=== PATIENT | male | born 1990 ===

== ENCOUNTER 2025-01-17 15:32 | Emergency (ER) | payer MEDICAID, SELFPAY ==
[2025-01-17 15:43] VITALS: BP 149/88; PULSE 86; RESP 18; TEMP 36.7; O2SAT 96; BMI 28.2
--- NOTE | 2025-01-17 15:49 | ECG_ITS ---
Test Reason : SYNCOPE Blood Pressure : */* mmHG Vent. Rate : 74 BPM Atrial Rate : 74 BPM P-R Int : 166 ms QRS Dur : 102 ms QT Int : 392 ms P-R-T Axes : 38 -2 5 degrees QTcB Int : 435 ms Normal sinus rhythm Normal ECG No previous ECGs available Referred By: Generic ED Physician Electronically Signed By: FRANSICO LINDA
[2025-01-17 16:14] LABS: MANUAL DIFF FLAG NO
[2025-01-17 16:23] LABS: Hematocrit 39.4 % (42.0-52.0); Hemoglobin 13.7 g/dl (14.0-18.0); Imm Gran Abs Auto 0.03 X10*3/uL (0.00-0.03); Imm Gran Pct Auto 0.4 % (0.0-0.4); Lymphocytes Absolute Auto 1.6 X10*3/uL (1.2-4.9); Mean Corpuscular HGB Conc 34.8 g/dl (31.0-36.0); Mean Corpuscular Hemoglobin 28.8 pg (27.0-33.0); Mean Corpuscular Volume 82.9 fL (80.0-98.0); NRBC Abs Auto 0.000 X10*3/uL (0.0-0.012); NRBC Pct Auto 0.0 /100WBC (0.0-0.2); Platelet Count 239 X10*3/uL (160-400); Red Blood Count 4.75 X10*6/uL (4.60-5.80); White Blood Count 8.3 X10*3/uL (4.8-10.8)
--- NOTE | 2025-01-17 16:25 | ED.DIZZY ---
HPI - Dizziness General Chief Complaint: Syncope Stated Complaint: feeling faint, htn Time Seen by Provider: 01/17/25 15:47 History of Present Illness ED Provider: Anuj Atr MD HPI Narrative: 34-year-old male no significant medical history has not seen a physician in no about 10 years. No drugs drinking alcohol, he reports an vague sensation of lightheadedness and near-syncope while at work he said he was in the air conditioning today even though it is a very hot summer day. 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 Denies chest pain no headache. He reports about a week ago he had abnormal irregular type palpitation the felt strong in the right side of his chest after drinking 2 energy drinks that was unusual for him. Today he had 2 distinct episodes of these mild lightheadedness without fall or syncope. No chest pain during the event no leg swelling. No recent trauma. After this he ate watermelon drank some water felt better. Related Data Allergies Allergy/AdvReac Type Severity Reaction Status Date / Time stu Allergy Itching Verified 01/17/25 15:47 peach Allergy Itching Verified 01/17/25 15:47 [facility] Social History Social History Advance Directives: No Advance Directives Information Provided: No Physical Exam Vital Signs: Vital Signs: Last Vital Signs Temp 97.4 F 01/17/25 17:21 Pulse 74 01/17/25 17:21 Resp 16 01/17/25 17:21 BP 143/63 H 01/17/25 17:21 Pulse Ox 96 01/17/25 17:21 O2 Del Method Room Air 01/17/25 17:21 BMI result Body Mass Index 28.2 EXAM: Gen: Alert, awake, well appearing, well hydrated. Head: Atraumatic Eyes: Anicteric, Normal conjunctiva. ENT: Moist mucosa, no pallor. ? Neck: Supple. Skin: ?No observable rash or bruising on exposed or examined skin Respiratory: Breathing comfortably, No distress.Clear to auscultation bilaterally, symmetric chest expansion, No wheeze, rales, ronchi. Cardiovascular: Regular rate and rhythm. No murmurs or rub. Well perfused periphery, warm extremities. No edema. ? Abdominal: No focal tenderness. Soft, no objective distension. No palpable masses or obvious organomegaly. ?No guarding, no rebound tenderness or other peritoneal findings. : No flank tenderness. Neuro: Alert. Gross movement of all extremities intact. ? Psych: Calm. Cooperative. MSK: No grossly visible deformity. Vital signs: See flowsheet Medical Decision Making Medical Decision Making MDM Narrative: Medical Decision Making: [age] male with near-syncope/lightheaded symptoms. Looks euvolemic. He normally does not eat until late in the afternoon which I told him it is probably not healthy and could be causing some of his symptoms that happened today. He has a normal reassuring electrolytes. CBC is normal. He has no signs of infection. Looks euvolemic in his comfortable here. No murmur or extra heart sounds. I think the patient can follow up outpatient may need Holter monitor. Counseling on frequent small meals regular hydration avoiding caffeine energy drinks Preliminary Favored Differential Diagnosis: Orthostasis, dehydration, transient hypoglycemia, transient dysrhythmia among additional considered etiologies Testing Interpreted Independently: ECG bradycardia rate 50s, no ischemic changes, normal intervals and axis. Radiology or Lab testing Results Reviewed: CBC, chemistry including thyroid and electrolytes normal Consults: Not Applicable Independent Historians/External Chart Reviews: Not Applicable Social Determinants of Health Impacting MDM/Planning: Not Applicable Lab Data 01/17/25 16:07 01/17/25 16:07 Labs: Lab Results 01/17/25 Range/Units 16:07 WBC 8.3 (4.8-10.8) X10*3/uL RBC 4.75 (4.60-5.80) X10*6/uL Hgb 13.7 L (14.0-18.0) g/dl Hct 39.4 L (42.0-52.0) % MCV 82.9 (80.0-98.0) fL MCH 28.8 (27.0-33.0) pg MCHC 34.8 (31.0-36.0) g/dl RDW 12.4 (11.0-16.0) % Plt Count 239 (160-400) X10*3/uL MPV 9.4 (9.4-12.4) fL Immature Gran % (Auto) 0.4 (0.0-0.4) % Neut % (Auto) 74.7 H (45-73) % Lymph % (Auto) 19.5 L (20-40) % [place] % (Auto) 4.8 (2-11) % Eos % (Auto) 0.4 (0-4) % Baso % (Auto) 0.2 (0-2) % Lymph # (Auto) 1.6 (1.2-4.9) X10*3/uL [place] # (Auto) 0.4 (0.1-1.2) X10*3/uL Eos # (Auto) 0.0 (0.0-0.4) X10*3/uL Baso # (Auto) 0.0 (0.0-0.2) X10*3/uL Abs Immat Gran (auto) 0.03 (0.00-0.03) X10*3/uL Absolute Neuts (auto) 6.2 (2.0-8.3) x10*3/uL Absolute Nucleated RBC 0.000 (0.0-0.012) X10*3/uL Nucleated RBC % (auto) 0.0 (0.0-0.2) /100WBC Sodium 139 (135-145) mmol/L Potassium 3.7 (3.3-5.1) mmol/L Chloride 106 (96-108) mmol/L Carbon Dioxide 26 (22-29) mmol/L Anion Gap 11 L (12-20) BUN 15 (9-16) mg/dL Creatinine 1.07 (0.5-1.4) mg/dL Estim Creat Clear Calc 107.0 Estimated GFR > 60 Random Glucose 126 H (60-115) mg/dL Calcium 9.0 (8.4-10.2) mg/dL Total Bilirubin 0.5 (0.0-1.0) mg/dL AST 28 (5-37) U/L ALT 36 (0-40) U/L Alkaline Phosphatase 49 (39-117) U/L Total Protein 6.9 (6.5-8.0) g/dL Albumin 4.5 (3.5-5.0) g/dL TSH 2.01 (0.32-4.0) uIU/mL Discharge Plan Discharge Clinical Impression: Dehydration Patient Disposition: Home, Self-Care Instructions: Heart Palpitations (DC), Dehydration (ED) Additional Instructions: DISCHARGE DIAGNOSES: Palpitations, lightheaded/near passing out sensation resolved. Unclear diagnosis. Reassuring EKG, examination and lab work. HISTORY OF PRESENTATION: ?Lightheadedness with a regular palpitations resolved EMERGENCY DEPARTMENT COURSE,TESTS, TREATMENTS: While in the ED today you were examined with a reassuring examination. Lab work including chemistry blood tests, blood counts, electrolytes thyroid normal. EKG normal DISCHARGE MEDICATIONS: ?[We have made no changes to your regular medication regimen] FOLLOW-UP: ?Call your primary or general physician soon as possible to discuss your symptoms, your ED visit and to discuss follow up plans Call using your insurance card to establish care with a primary doctor. INSTRUCTIONS ?& RETURN PRECAUTIONS: If any symptoms change first call your primary physician, if it is after-hours your primary doctors office should have a provider corporate responsibility officer you can speak with. If the symptoms are severe or very concerning to you then call 911 or return to the ED. Eat small frequent regular meals do not skip meals. It is stay hydrated. Drink at least 3 L of water daily stay cool. Anuj Art MD Emergency Physician [facility] Discharge Date/Time: 01/17/25 17:22 Print Language: Z[place]ian
[2025-01-17 16:28] LABS: Alanine Aminotransferase 36 U/L (0-40); Albumin Level 4.5 g/dL (3.5-5.0); Alkaline Phosphatase 49 U/L (39-117); Anion Gap 11 (12-20); Aspartate Amino Transferase 28 U/L (5-37); Blood Urea Nitrogen 15 mg/dL (9-16); Calcium 9.0 mg/dL (8.4-10.2); Carbon Dioxide 26 mmol/L (22-29); Chloride 106 mmol/L (96-108); Creatinine Clr Calc Pharmacy 107.0; Estimated Glomerular Filt Rate > 60; Potassium 3.7 mmol/L (3.3-5.1); Sodium 139 mmol/L (135-145); Total Protein 6.9 g/dL (6.5-8.0)
[2025-01-17 16:55] VITALS: BP 130/63; PULSE 75
[2025-01-17 16:58] VITALS: BP 135/75; PULSE 78
[2025-01-17 17:01] VITALS: BP 133/87; PULSE 80
[2025-01-17 17:01] LABS: Thyroid Stimulating Hormone 2.01 uIU/mL (0.32-4.0)
[2025-01-17 17:21] VITALS: BP 143/63; PULSE 74; RESP 16; TEMP 36.3; O2SAT 96
== END 2025-01-17 17:22 | disposition home or self-care (01) ==
LOC: HO.ED 17:15
PROVIDERS: Emergency Provider Emergency Medicine
DX: E86.0 Dehydration (principal); R55 Syncope and collapse; R00.2 Palpitations
CPT/HCPCS: 36415; 80053; 84443; 85025; 93005; 99283; 99284

== ENCOUNTER → 2025-01-17 15:49 | Outpatient (BNV) | payer MEDICAID, SELFPAY | PROVIDERS: Emergency Provider Emergency Medicine; Visit Provider Internal Medicine | DX: R55 Syncope and collapse (principal) | CPT/HCPCS: 93010 ==